=== PATIENT | female | born 1995 | race Two or more races ===

== ENCOUNTER 2023-04-25 22:19 | Emergency (ER) | payer OTHER ==
[~2023-04-25] VITALS: Ht 167.6 cm; Wt 81.6 kg
[2023-04-25] MEDS ORDERED: PRENA1 CHEW TA1.4 MG (23:27)
[2023-04-26 02:33] LABS: URINE APPEARANCE Clear; URINE BILIRRUBIN Negative (NEGATIVE); URINE BLOOD Negative; URINE COLOR Yellow; URINE GLUCOSE Negative (NEGATIVE); URINE LEUKOCYTE Negative; URINE NITRATE Negative; URINE PROTEIN Negative (NEGATIVE); URINE UROBILINOGEN 0.2 E.U./dl
[2023-04-26 02:39] LABS: URINE RBC 0.2 uL (0.0-20.8); URINE WBC 1.3 uL (0.0-23.2)
[2023-04-26 02:41] LABS: HEMOGLOBIN 13.2 g/dL (12.0-15.00); MEAN CELL VOLUME 90.4 fL (80.00-100.00); MEAN CORPUSCULAR HEMOGLOBIN 30.7 pg (27.00-32.0); MEAN CORPUSCULAR HGB CONC 33.9 g/dl (32.0-36.0); PLATELET COUNT 125 K/uL (150-450); RED BLOOD COUNT 4.32 M/uL (4.00-6.00); RED CELL DISTRIBUTION WIDTH 13.8 % (11.5-14.5)
== END 2023-04-26 08:19 | disposition home or self-care (01) ==
LOC: ER 22:20
PROVIDERS: General Practice
DX: O26.891 Other specified pregnancy related conditions, first trimester (principal); R10.2 Pelvic and perineal pain; Z3A.08 8 weeks gestation of pregnancy; Z91.018 Allergy to other foods

== ENCOUNTER 2023-06-17 15:01 | Outpatient (CLI) | payer OTHER ==
[~2023-06-17 15:01] MED LIST: PRENA1 CHEW TA1.4 MG
== END 2023-06-17 15:04 | disposition home or self-care (01) ==
LOC: PRENATAL 15:01
PROVIDERS: ATTEND Obstetrics & Gynecology Maternal & Fetal Medicine
DX: O26.849 Uterine size-date discrepancy, unspecified trimester (principal); O99.891 Other specified diseases and conditions complicating pregnancy; Z3A.15 15 weeks gestation of pregnancy

== ENCOUNTER 2023-07-09 18:56 | Emergency (ER) | payer OTHER ==
[~2023-07-09] VITALS: Ht 157.5 cm; Wt 80.3 kg
[2023-07-09 20:29] LABS: HEMOGLOBIN 12.8 g/dL (12.0-15.00); MEAN CORPUSCULAR HEMOGLOBIN 31.1 pg (27.00-32.0); MEAN CORPUSCULAR HGB CONC 34.5 g/dl (32.0-36.0); PLATELET COUNT 122 K/uL (150-450); RED BLOOD COUNT 4.11 M/uL (4.00-6.00); RED CELL DISTRIBUTION WIDTH 13.6 % (11.5-14.5)
[2023-07-09 20:32] LABS: CALCIUM 8.8 mg/dL (8.5-10.1); CREATININE SERUM 0.44 mg/dL (0.55-1.02); GFR 169.05; POTASSIUM 3.63 mEq/L (3.5-5.1)
[2023-07-09 21:19] LABS: PH,URINE 5.5 (5.0-8.0); URINE APPEARANCE Clear; URINE BILIRRUBIN Negative (NEGATIVE); URINE BLOOD Negative; URINE COLOR Yellow; URINE GLUCOSE Negative (NEGATIVE); URINE LEUKOCYTE Negative; URINE NITRATE Negative; URINE PROTEIN Negative (NEGATIVE); URINE UROBILINOGEN 0.2 E.U./dl
[2023-07-09 21:23] LABS: URINE BACTERIA 57.9 uL (0.0-1933); URINE WBC 4.2 uL (0.0-23.2)
[2023-07-09 21:24] LABS: URINE RBC 0.2 uL (0.0-20.8)
== END 2023-07-09 22:18 ==
LOC: ER 18:56
PROVIDERS: Nurse Practitioner Family
DX: O26.892 Other specified pregnancy related conditions, second trimester (principal); Z3A.18 18 weeks gestation of pregnancy; R10.2 Pelvic and perineal pain; Z91.02 Food additives allergy status

== ENCOUNTER 2023-07-23 15:44 | Outpatient (CLI) | payer OTHER | END 2023-07-23 15:45 | disposition home or self-care (01) | LOC: PRENATAL 15:44 | PROVIDERS: ATTEND Obstetrics & Gynecology Maternal & Fetal Medicine | DX: O35.3XX0 Maternal care for (suspected) damage to fetus from viral disease in mother, not applicable or unspecified (principal); O44.00 Complete placenta previa NOS or without hemorrhage, unspecified trimester; Z3A.20 20 weeks gestation of pregnancy ==

== ENCOUNTER 2023-10-13 13:55 | Outpatient (CLI) | payer OTHER ==
[~2023-10-13 13:55] MED LIST changes: +MACROBID 100 M100 MG PO
== END 2023-10-13 13:57 | disposition home or self-care (01) ==
LOC: PRENATAL 13:55
PROVIDERS: ATTEND Obstetrics & Gynecology Maternal & Fetal Medicine
DX: O35.9XX0 Maternal care for (suspected) fetal abnormality and damage, unspecified, not applicable or unspecified (principal); O35.3XX0 Maternal care for (suspected) damage to fetus from viral disease in mother, not applicable or unspecified; O44.00 Complete placenta previa NOS or without hemorrhage, unspecified trimester; Z3A.20 20 weeks gestation of pregnancy

== ENCOUNTER 2023-11-11 16:24 | Outpatient (CLI) | payer OTHER | END 2023-11-11 16:27 | disposition home or self-care (01) | LOC: PRENATAL 16:24 | PROVIDERS: ATTEND Obstetrics & Gynecology Maternal & Fetal Medicine | DX: O26.843 Uterine size-date discrepancy, third trimester (principal); O36.8130 Decreased fetal movements, third trimester, not applicable or unspecified; O40.3XX0 Polyhydramnios, third trimester, not applicable or unspecified; Z3A.36 36 weeks gestation of pregnancy ==

== ENCOUNTER 2023-12-04 14:23 | Inpatient (IN) | payer OTHER ==
[~2023-12-04] VITALS: Ht 157.5 cm; Wt 98.9 kg
[2023-12-06] MEDS ORDERED: ONDANSETRON HCL 2 MG/ML VIAL ONE (11:03)
[2023-12-06] MEDS ORDERED: AMPICILLIN SODIUM 2,000 MG VIAL IV STA (19:59)
[2023-12-06] MEDS ORDERED: RINGERS SOLUTION,LACTATED 1,000 ML IV SCH (20:00)
[2023-12-06 20:46] LABS: PH,URINE 7.5 (5.0-8.0); URINE APPEARANCE Clear; URINE BILIRRUBIN Negative (NEGATIVE); URINE BLOOD Negative; URINE COLOR Yellow; URINE GLUCOSE Negative (NEGATIVE); URINE KETONE Negative (NEGATIVE); URINE LEUKOCYTE Moderate; URINE NITRATE Negative; URINE PROTEIN Trace (NEGATIVE)
[2023-12-06 20:47] LABS: URINE BACTERIA 1072.1 uL (0.0-1933); URINE EPITHELIAL CELLS 32.1 uL (0.0-38.8); URINE RBC 4.1 uL (0.0-20.8); URINE WBC 33.6 uL (0.0-23.2)
[2023-12-06 20:51] LABS: HEMATOCRIT 37.5 % (36.0-45.00); HEMOGLOBIN 12.6 g/dL (12.0-15.00); MEAN CELL VOLUME 90.9 fL (80.00-100.00); MEAN CORPUSCULAR HEMOGLOBIN 30.6 pg (27.00-32.0); MEAN CORPUSCULAR HGB CONC 33.7 g/dl (32.0-36.0); RED BLOOD COUNT 4.13 M/uL (4.00-6.00)
[2023-12-06 21:03] LABS: PLATELET COUNT 91 K/uL (150-450)
[2023-12-06 21:13] LABS: ALBUMIN 2.7 gm/dL (3.4-5.0); BILIRUBIN TOTAL 0.3 mg/dL (0.3-1.2); CALCIUM 9.2 mg/dL (8.5-10.1); CREATININE SERUM 0.48 mg/dL (0.55-1.02); GFR 152.9; INR < 0.93; PARTIAL THROMBOPLASTIN TIME 29.6 SECONDS (22.0-34.0); POTASSIUM 4.46 mEq/L (3.5-5.1); PROTHROMBIN TIME 10.2 SECONDS (9.0-11.5); TOTAL PROTEIN 6.7 gm/dL (6.4-8.2)
[2023-12-06 21:24] LABS: URINE CAST 0.45 uL (0.0-1.40); URINE YEAST FEW /hpf
[2023-12-07] MEDS ORDERED: AMPICILLIN SODIUM 1,000 MG VIAL IV SCH
[2023-12-07] MEDS ORDERED: OXYTOCIN 500 ML IV SCH (06:30)
[2023-12-07] MEDS ORDERED: PROMETHAZINE HCL 25 MG/ML AMPUL IV NR (08:15)
[2023-12-07] MEDS ORDERED: MEPERIDINE HCL/PF 50 MG/ML VIAL IV NR (08:15)
[2023-12-07] MEDS ORDERED: MEPERIDINE HCL/PF 50 MG/ML VIAL IV ONE (13:05)
[2023-12-07] MEDS ORDERED: PROMETHAZINE HCL 25 MG/ML AMPUL IV ONE (13:05)
[2023-12-07] MEDS ORDERED: OXYTOCIN 20 UNITS/1000ML RL PIGGYBAG IV ONE ×2 (16:24→17:45)
[2023-12-07] MEDS ORDERED: CHLORHEXIDINE GLUCONATE 120 ML BOTTLE TOP ONE ×2 (16:24→17:45)
[2023-12-07] MEDS ORDERED: ERYTHROMYCIN BASE 1 GM TUBE OP ONE ×2 (16:24→17:45)
[2023-12-07] MEDS ORDERED: LIDOCAINE HCL 1% 10ML VIAL ONE (16:25)
[2023-12-07] MEDS ORDERED: CARBOPROST TROMETHAMINE 250 MCG/ML AMPUL IM ONE (17:03)
[2023-12-07] MEDS ORDERED: CARBOPROST TROMETHAMINE 250 MCG/ML AMPUL IM STA (17:44)
[2023-12-07] MEDS ORDERED: LIDOCAINE HCL 1% 2ML VIAL IJ ONE (17:45)
[2023-12-07] MEDS ORDERED: OxyCODONE HCL/APAP UD (PERCOCET) PO PRN (17:45)
[2023-12-07] MEDS ORDERED: ACETAMINOPHEN 325 MG TABLET PO PRN (17:45)
[2023-12-08 01:15] LABS: HEMATOCRIT 35.5 % (36.0-45.00); MEAN CELL VOLUME 91.2 fL (80.00-100.00); MEAN CORPUSCULAR HEMOGLOBIN 30.3 pg (27.00-32.0); MEAN CORPUSCULAR HGB CONC 33.2 g/dl (32.0-36.0); PLATELET COUNT 94 K/uL (150-450); RED BLOOD COUNT 3.89 M/uL (4.00-6.00); RED CELL DISTRIBUTION WIDTH 13.9 % (11.5-14.5)
[2023-12-08 01:16] LABS: HEMOGLOBIN 11.8 g/dL (12.0-15.00)
[2023-12-08] MEDS ORDERED: BENZOCAINE/MENTHOL 90 ML BOTTLE TOP SCH (09:00)
[2023-12-08] MEDS ORDERED: HYDROCORTISONE 2.5% 30 GM TUBE RECTAL SCH (09:00)
[2023-12-08] MEDS ORDERED: DOCUSATE SODIUM 100MG CAP PO SCH (09:00)
[2023-12-08] MEDS ORDERED: HYPERRHO S-1500 UNIT IM (13:57)
[2023-12-08] MEDS ORDERED: FF) RHO(D) IMMUNE GLOBULIN (POM) IM ONE (14:00)
== END 2023-12-09 12:45 | disposition home or self-care (01) | DRG 768 ==
LOC: LDR 14:23 → OB/GYN 12-07 18:21
PROVIDERS: ADMIT Specialist; ATTEND Specialist
PROC: 4A1HXCZ Monitoring of Products of Conception, Cardiac Rate, External Approach (ICD-10-PCS; 2023-12-06)
PROC: 10E0XZZ Delivery of Products of Conception, External Approach (ICD-10-PCS; principal; 2023-12-07)
PROC: 3E033VJ Introduction of Other Hormone into Peripheral Vein, Percutaneous Approach (ICD-10-PCS; 2023-12-07)
PROC: 0DQR0ZZ Repair Anal Sphincter, Open Approach (ICD-10-PCS; 2023-12-07)
DX: O70.21 Third degree perineal laceration during delivery, IIIa (principal); O99.824 Streptococcus B carrier state complicating childbirth; Z37.0 Single live birth; Z3A.40 40 weeks gestation of pregnancy; Z20.822 Contact with and (suspected) exposure to COVID-19